=== PATIENT | male | born 1955 | race Caucasian/White ===

== ENCOUNTER 2019-09-14 14:40 | Outpatient (CLI) | payer OTHER, SELFPAY ==
[2019-09-14 14:53] LABS: Basophils Absolute Auto 0.1 K/mm3 (0.0-0.1); Basophils Percent Auto 0.6 % (0.2-1.2); Eosinophils Absolute Auto 0.2 K/mm3 (0-0.3); Eosinophils Percent Auto 2.5 % (0-4.4); Hemoglobin 8.7 g/dL (14.0-18.0); Immature Granulocyte Absolute 0.04 K/mm3 (0.00-0.031); Immature Granulocyte Percent A 0.5 % (0-0.5); Lymphocytes Absolute Auto 1.74 K/mm3 (0.9-3.2); Lymphocytes Percent Auto 21.1 % (18.3-44.2); Mean Corpuscular HGB Conc 31.1 g/dl (32-36); Mean Corpuscular Hemoglobin 25.3 pg (26-34); Mean Corpuscular Volume 81.4 fl (80-100); Mean Platelet Volume 8.6 fl (7.4-10.4); Monocytes Absolute Auto 1.1 K/mm3 (0.1-0.6); Monocytes Percent Auto 13.2 % (2.6-8.5); Neutrophils Absolute Auto 5.1 K/mm3 (1.3-6.7); Neutrophils Percent Auto 62.1 % (45.5-73.1); Platelet Count Result 497 k/mm3 (150-375); Red Blood Count 3.44 M/mm3 (4.6-6.20); Red Cell Distribution Width 21.7 % (11.5-14.5); White Blood Count 8.3 K/mm3 (4.5-10.0)
== END 2019-09-14 14:41 | disposition home or self-care (01) ==
LOC: ANHLAB 14:43
PROVIDERS: Nurse Practitioner; PCP Internal Medicine; Visit Provider Internal Medicine Hematology & Oncology
DX: R00.0 Tachycardia, unspecified (principal); D61.818 Other pancytopenia
CPT/HCPCS: 36415; 84443; 85025

== ENCOUNTER 2019-09-14 15:12 | Outpatient (CLI) | payer OTHER, SELFPAY ==
--- NOTE | ~2019-09-14 | XR_ITS ---
EXAMINATION: XR chest 2V DATE: 09/14/2019 15:28 INDICATION: Pneumonia, unspecified organism. Cough. TECHNIQUE: Frontal and lateral views of the chest were obtained. COMPARISON: Chest single view 09/03/2019, chest CT 05/17/2019 FINDINGS: There are mild airspace opacities in right perihilar region and right lower lung zone. Ther e are small nodules in left midlung zone. There is volume loss of right hemithorax with surgical clip s at the right hilum, which may be from right upper lobectomy. No pleural effusion or pneumothorax. T he heart size is normal. There is a right internal jugular port with tip in superior vena cava. IMPRESSION: 1. Mild airspace opacities in right perihilar region and right lower lung zone, consistent with atele ctasis versus pneumonia versus treatment change. 2. Small nodules in left midlung zone, which may be infection or less likely metastatic disease. Reviewed, dictated and finalized at location A. GAUGER AND LUBRICATOR TENDER IMPRESSION: 1. Mild airspace opacities in right perihilar region and right lower lung zone, consistent with atelectasis versus pneumonia versus treatment change. 2. Small nodules in left midlung zone, which may be infection or less likely me tastatic disease.
== END 2019-09-14 15:13 | disposition home or self-care (01) ==
LOC: ANHIMG 15:15
PROVIDERS: PCP Internal Medicine; Visit Provider Nurse Practitioner
DX: J18.9 Pneumonia, unspecified organism (principal); R91.8 Other nonspecific abnormal finding of lung field
CPT/HCPCS: 71046

== ENCOUNTER 2019-09-28 11:49 | Outpatient (CLI) | payer OTHER, SELFPAY ==
--- NOTE | ~2019-09-28 | XR_ITS ---
EXAMINATION: XR chest 2V EXAM DATE: 09/28/2019 12:23 INDICATION: Pneumonia. Lung cancer. TECHNIQUE: Frontal and lateral projections of the chest obtained and reviewed. Comparison is made to prior examination from 09/14/2019. FINDINGS: There is right-sided portacatheter. There is approximately 5 mm left midlung zone nodular density. Some scattered regions of right lung scarring. These findings appear not significant changed compared to prior study. There is no pneumothorax suspected. There are no pleural effusions. Cardiom ediastinal silhouette is normal. There are mild bony degenerative changes. IMPRESSION: 1. No acute cardiopulmonary findings. 2. Left midlung zone indeterminate nodular density. Reviewed, dictated and finalized at location B. CIDE SQUAD CAPTAIN
== END 2019-09-28 11:50 | disposition home or self-care (01) ==
LOC: ANHIMG 11:51
PROVIDERS: PCP Internal Medicine; Visit Provider Internal Medicine
DX: J18.9 Pneumonia, unspecified organism (principal)
CPT/HCPCS: 71046

== ENCOUNTER 2019-10-22 07:10 | Outpatient (CLI) | payer OTHER, SELFPAY ==
--- NOTE | ~2019-10-22 | US_ITS ---
EXAMINATION:US venous doppler LE LT INDICATION:Follow-up deep venous thrombosis TECHNIQUE: Multiple grayscale, color flow and Doppler images of the left lower extremity deep venous systems were obtained and reviewed. COMPARISON:Ultrasound dated 05/19/2019 FINDINGS: The common femoral, superficial femoral and popliteal veins demonstrate normal respiratory variation, augmentation and compressibility. Color flow is also seen within the posterior tibial, pe roneal, greater saphenous and profunda veins. Interval resolution of deep venous thrombosis. IMPRESSION: 1: No lower extremity deep venous thrombosis. Reviewed, dictated and finalized at location B. INSERTER
--- NOTE | ~2019-10-22 | CT_ITS ---
EXAMINATION: CT chest w con DATE: 10/22/2019 08:08 INDICATION: History of lung cancer. TECHNIQUE: Computed tomography (CT) of the chest was performed with 75 cc Omnipaque 350 intravenous c ontrast. The dose-length product was 474.73 mGy-cm. Automated exposure control and iterative reconstr uction technique were employed. COMPARISON: CT dated 05/17/2019 FINDINGS: Stable right hilar lymphadenopathy measuring 1.5 x 1.1 cm. No mediastinal lymphadenopathy. No axillary lymphadenopathy. Heart size normal. No significant pleural or pericardial effusion. Previ ously identified right suprahilar mass not definitely visualized on the current study. There is ather osclerosis of the aorta and coronary arteries. Interval resolution of right-sided pulmonary embolism. There are surgical changes of right upper lobectomy. There is a 5 mm right lower lobe nodules withou t significant change, coronal image 82. There is a 5 mm left lower lobe nodule, image 46 which is not significantly changed. There is a 5 mm left lower lobe nodule, image 84, unchanged. There is a port catheter, tip in the SVC. Moderate lower thoracic spondylosis with mild wedge deformities of multiple lower thoracic vertebra, likely chronic. No osteolytic or osteoblastic lesions are identified. There is a new 6 mm right lower lobe nodule, image 74. There is a new 5 mm nodule right lower lobe, image 61. There is moderate emphysema. IMPRESSION: 1. Bilateral pulmonary nodules measuring 6 mm or less without significant change, likely chronic gran ulomatous disease. Metastases are less favored. 2: Status post right upper lobectomy. Stable right hilar lymphadenopathy, possibly treated metastase s. Reviewed, dictated and finalized at location A. TY RECORDS MANAGEMENT OFFICER IMPRESSION: 1. Bilateral pulmonary nodules measuring 6 mm or less without significant phillips e, likely chronic granulomatous disease. Metastases are less favored. 2: Status post right upper lobectomy. Stable right hilar lymphadenopathy, poss ibly treated metastases.
[2019-10-22 08:04] LABS: Estimated Glomerular Filt Rate > 60
== END 2019-10-22 07:11 | disposition home or self-care (01) ==
LOC: ANHIMG 07:13
PROVIDERS: PCP Internal Medicine; Visit Provider Internal Medicine Hematology & Oncology
DX: C34.90 Malignant neoplasm of unspecified part of unspecified bronchus or lung (principal); I82.4Y2 Acute embolism and thrombosis of unspecified deep veins of left proximal lower extremity; R91.8 Other nonspecific abnormal finding of lung field
CPT/HCPCS: 36415; 71260; 93971; Q9967

== ENCOUNTER 2020-01-28 06:36 | Outpatient (CLI) | payer OTHER, SELFPAY ==
--- NOTE | ~2020-01-28 | CT_ITS ---
EXAMINATION:CT chest w con DATE: 01/28/2020 07:08 INDICATION: Malignant neoplasm of lung. TECHNIQUE: Computed tomography (CT) of the chest was performed with 75 mL Omnipaque 350 intravenous c ontrast. Automated exposure control and iterative reconstruction technique were employed. The dose-le ngth product (DLP) was 376.19 mGy-cm. COMPARISON: Chest CT 10/22/2019, 11/21/2016, 05/17/2019 FINDINGS: There are changes of right upper lobectomy. There is mild emphysema. There is a mild burden of chronic peripheral reticular opacities in the lungs. There is an 8 mm nodule in right lower lobe, stable from 11/21/2016, consistent with granulomatous disease. There are approximately 7 scattered pul monary nodules measuring up to 5 mm, stable from 11/21/2016, consistent with granulomatous disease. No pleural effusion. The heart size is normal. There are coronary artery calcifications. There are calci fications of the aortic valve. No pericardial effusion. There is a small sliding hiatal hernia. There is a 10 x 16 mm right hilar lymph node without change from 10/22/2019. There is a right internal jugul ar port with tip at superior cavoatrial junction. There is mild chronic anterior wedging of multiple thoracic vertebral bodies. There is moderate thoracic spondylosis. IMPRESSION: 1. Borderline enlarged right hilar lymph node, stable from 10/22/2019, which is indeterminate for metas tatic disease. Reviewed, dictated and finalized at location A. IMPRESSION: 1. Borderline enlarged right hilar lymph node, stable from 10/22/2019, which is i ndeterminate for metastatic disease.
[2020-01-28 07:03] LABS: Estimated Glomerular Filt Rate > 60
== END 2020-01-28 06:37 | disposition home or self-care (01) ==
PROVIDERS: PCP Internal Medicine; Visit Provider Internal Medicine Hematology & Oncology
DX: C34.90 Malignant neoplasm of unspecified part of unspecified bronchus or lung (principal); R59.0 Localized enlarged lymph nodes
CPT/HCPCS: 36415; 71260; Q9967

== ENCOUNTER 2020-04-25 09:26 | Outpatient (CLI) | payer OTHER, SELFPAY ==
--- NOTE | ~2020-04-25 | CT_ITS ---
EXAMINATION: CT chest w con DATE: 04/25/2020 09:53 INDICATION: Malignant neoplasm of the lung TECHNIQUE: Transaxial computed tomographic images of the chest were obtained after the administration of 75 cc of Omnipaque 350 intravenous contrast. The dose-length product (DLP) was 385.09 mGy-cm. Ite rative reconstruction was used. COMPARISON: 01/28/2020 FINDINGS: There are changes of right upper lobectomy. There is mild emphysema. There are multiple sta ble pulmonary nodules, the largest of which measures 8 mm in the right lower lobe, consistent with ol d granulomatous disease. No new pulmonary nodules are identified. There is no pleural effusion or pne umothorax. A right internal jugular Port-A-Cath ends with its tip at the superior cavoatrial junction . The heart size is normal. The previously described enlarged right hilar lymph node is slightly decr eased in size measuring 1.5 x 0.8 cm. Calcified atherosclerosis is noted. There is moderate thoracic spondylosis. Again noted is mild chronic anterior wedging of multiple thoracic vertebral bodies. IMPRESSION: 1. Decrease in size of the previously identified enlarged right hilar lymph node, likely reactive. Reviewed, dictated and finalized at location B. IMPRESSION: 1. Decrease in size of the previously identified enlarged right hilar lymph nod e, likely reactive.
[2020-04-25 09:46] LABS: Estimated Glomerular Filt Rate > 60
== END 2020-04-25 09:27 | disposition home or self-care (01) ==
LOC: ANHIMG 09:28
PROVIDERS: PCP Internal Medicine; Visit Provider Internal Medicine Hematology & Oncology
DX: C34.90 Malignant neoplasm of unspecified part of unspecified bronchus or lung (principal); R59.0 Localized enlarged lymph nodes
CPT/HCPCS: 71260; Q9967

== ENCOUNTER 2020-05-04 14:14 | Outpatient (CLI) | payer OTHER, SELFPAY ==
[2020-05-04 14:39] LABS: Basophils Absolute Auto 0.1 K/mm3 (0.0-0.1); Basophils Percent Auto 0.8 % (0.2-1.2); Eosinophils Absolute Auto 0.2 K/mm3 (0-0.3); Eosinophils Percent Auto 3.1 % (0-4.4); Hematocrit 40.5 % (42.0-52.0); Hemoglobin 13.6 g/dL (14.0-18.0); Lymphocytes Absolute Auto 2.47 K/mm3 (0.9-3.2); Lymphocytes Percent Auto 33.5 % (18.3-44.2); Mean Corpuscular HGB Conc 33.6 g/dl (32-36); Mean Corpuscular Hemoglobin 30.1 pg (26-34); Mean Corpuscular Volume 89.6 fl (80-100); Mean Platelet Volume 8.7 fl (7.4-10.4); Monocytes Absolute Auto 0.6 K/mm3 (0.1-0.6); Neutrophils Percent Auto 54.6 % (45.5-73.1); Platelet Count Result 207 k/mm3 (150-375); Red Blood Count 4.52 M/mm3 (4.6-6.20); Red Cell Distribution Width 13.9 % (11.5-14.5); White Blood Count 7.4 K/mm3 (4.5-10.0)
[2020-05-04 14:43] LABS: Blood Urea Nitrogen 13 mg/dL (8-26); Carbon Dioxide 30 mmol/L (22-30); Chloride 103 mmol/L (98-109); Estimated Glomerular Filt Rate > 60; Glucose 94 mg/dL (70-105); Potassium 4.5 mmol/L (3.5-4.9); Sodium 143 mmol/L (138-146)
[2020-05-04 17:05] LABS: Alanine Aminotransferase 26 U/L (4-50); Albumin Level 4.5 g/dL (3.5-5.1); Alkaline Phosphatase 82 U/L (38-126); Anion Gap 8 mmol/L (8-16); Aspartate Amino Transferase 31 U/L (17-59); Bilirubin,Total 0.4 mg/dL (0.2-1.3); Blood Urea Nitrogen 14 mg/dL (9-20); Calcium 9.9 mg/dL (8.4-10.2); Carbon Dioxide 31 mmol/L (22-30); Chloride 103 mmol/L (98-107); Estimated Glomerular Filt Rate > 60; Glucose 93 mg/dL (75-110); Potassium 4.6 mmol/L (3.4-5.0); Sodium 142 mmol/L (137-145)
[2020-05-04 17:43] LABS: Cholesterol 147 mg/dL (0-200); HDL Direct 36 mg/dL; Triglycerides 240 mg/dL (<150)
[2020-05-04 17:56] LABS: LDL Cholesterol Direct 80 mg/dL
[2020-05-04 18:13] LABS: Prostate Specific Antigen 0.7 ng/mL (< OR = 4.0)
== END 2020-05-04 14:15 | disposition home or self-care (01) ==
LOC: ANHLAB 14:15
PROVIDERS: PCP Internal Medicine; Visit Provider Internal Medicine Hematology & Oncology
DX: Z12.5 Encounter for screening for malignant neoplasm of prostate (principal); E78.5 Hyperlipidemia, unspecified
CPT/HCPCS: 36415; 80048; 80053; 80061; 84153; 85025; G0103

== ENCOUNTER 2020-08-02 07:02 | Outpatient (CLI) | payer OTHER, SELFPAY ==
--- NOTE | ~2020-08-02 | CT_ITS ---
EXAMINATION: CT chest w con DATE: 08/02/2020 07:35 INDICATION: Restaging malignant neoplasm of lung; history of right upper lobectomy and emphysema. TECHNIQUE: Computed tomography (CT) of the chest was performed with 75 cc Omnipaque 350 intravenous c ontrast. Automated exposure control and iterative reconstruction technique were employed. Exam dose: 340.73 mGy-cm total exam DLP. COMPARISON: 04/25/2020 CT chest FINDINGS: Right Port-A-Cath catheter in superior vena cava. Status post right thoracotomy/right upper lobectomy. No hilar or mediastinal mass lesion or lymphadenopathy is detected. Status post right upper lobectomy for history of lung cancer. Normal heart size. Coronary artery calcification. Aortic and great vessel calcifications. No thoracic aortic aneurysm or dissection. No pericardial or pleural effusion. There are scattered bilateral pulmonary nodules including the following: There is an approximately 2.7 mm nodule in the right upper lung field, previously measuring approxima tely 1.5 mm. This is of concern for possible enlarging mass/possible early malignancy. This is too sm all to detect by PET/CT imaging or to biopsy at this time. Follow-up CT imaging in 4-6 months is mariangel mmended. Stable 5 mm nodule in the posterior aspect of the right mid lung (series 4 image 49) Stable approximately 4 mm nodular density in the right lower lobe (image 62). Stable 8 mm opacity in the right lower lobe (image 73). Stable 5 mm right lower lobe opacity (image 77). Occasional lingular and left lower lobe calcified pulmonary granulomas. Mild emphysematous changes are noted. No pulmonary infiltrate or consolidation. No pneumothorax. Normal morphology of the adrenal glands. Approximately 1.6 cm upper pole left renal cyst. There is diffuse idiopathic skeletal hyperostosis of the thoracic spine. IMPRESSION: 2.7 mm right upper lobe nodule, increased in size from 1.5 mm on 04/25/2020, of concern fo r possible small malignancy. Follow-up CT imaging in 4-6 months with particular attention to this are a is recommended. Dr. Osborn telephoned this finding and the recommendation for CT follow-up in 4-[address] Monsalve' s nurse Vera on 08/02/2020 at 0934 hours. Reviewed, dictated and finalized at Location A. Reviewed, dictated and finalized at location B. LADLE TENDER IMPRESSION: 2.7 mm right upper lobe nodule, increased in size from 1.5 mm on , of concern for possible small malignancy. Follow-up CT imaging in 4-6 months with particular attention to this area is recommended. Dr. Osborn telephoned this finding and the recommendation for CT follow-up in 4-[address] Monsalve's nurse Vera on 08/02/2020 at 0934 hours.
[2020-08-02 07:30] LABS: Estimated Glomerular Filt Rate > 60
== END 2020-08-02 07:03 | disposition home or self-care (01) ==
PROVIDERS: PCP Internal Medicine; Visit Provider Internal Medicine Hematology & Oncology
DX: C34.90 Malignant neoplasm of unspecified part of unspecified bronchus or lung (principal); R91.1 Solitary pulmonary nodule
CPT/HCPCS: 71260; Q9967

== ENCOUNTER 2020-10-30 06:39 | Outpatient (CLI) | payer OTHER, SELFPAY ==
--- NOTE | ~2020-10-30 | CT_ITS ---
EXAMINATION:CT diagnostic chest w con DATE: 10/30/2020 07:09 INDICATION: Malignant neoplasm of lung. TECHNIQUE: Computed tomography (CT) of the chest was performed with 75 mL Omnipaque 350 intravenous c ontrast. Automated exposure control and iterative reconstruction technique were employed. The dose-le ngth product (DLP) was 446.05 mGy-cm. COMPARISON: Chest CT 08/02/2020, 11/25/18, 10/22/2019 FINDINGS: There is mild emphysema. There are changes of right upper lobectomy. There is chronic perip heral septal thickening in the lungs bilaterally. There are greater than 10 scattered nodules in the lungs, most of which are chronic. There is a 6 mm nodule in right upper lobe, increased from 3 mm. Th ere is an 8 mm nodule in left upper lobe, increased from 5 mm. No pleural effusion. There is a right internal jugular port with tip at superior cavoatrial junction. The heart size is normal. There are c oronary artery calcifications. No pericardial effusion. There is a 10 x 10 mm right hilar lymph node, stable from 10/22/19, likely benign. There is a small sliding hiatal hernia. There is a 2.1 cm cyst in left kidney. There is mild chronic anterior wedging of multiple thoracic vertebral bodies. There is moderate thoracic spondylosis. IMPRESSION: 1. 8 mm and 6 mm pulmonary nodules with interval enlargement, likely metastatic disease. 2. Mild emphysema. Reviewed, dictated and finalized at location A.
[2020-10-30 07:04] LABS: Estimated Glomerular Filt Rate > 60
== END 2020-10-30 06:40 | disposition home or self-care (01) ==
LOC: ANHIMG 06:41
PROVIDERS: PCP Internal Medicine; Visit Provider Internal Medicine Hematology & Oncology
DX: C34.90 Malignant neoplasm of unspecified part of unspecified bronchus or lung (principal); J43.9 Emphysema, unspecified
CPT/HCPCS: 71260; Q9967

== ENCOUNTER 2020-10-31 09:09 | Outpatient (CLI) | payer OTHER, SELFPAY ==
[2020-10-31 13:14] LABS: Cholesterol 139 mg/dL (0-200); HDL Direct 42 mg/dL; Triglycerides 135 mg/dL (<150)
[2020-10-31 13:26] LABS: LDL Cholesterol Direct 71 mg/dL
[2020-10-31 13:45] LABS: Prostate Specific Antigen 0.8 ng/mL (< OR = 4.0)
== END 2020-10-31 09:10 | disposition home or self-care (01) ==
LOC: ANHLAB 09:10
PROVIDERS: PCP Internal Medicine; Visit Provider Internal Medicine
DX: Z12.5 Encounter for screening for malignant neoplasm of prostate (principal); I10 Essential (primary) hypertension; Z51.81 Encounter for therapeutic drug level monitoring; E78.5 Hyperlipidemia, unspecified
CPT/HCPCS: 36415; 80061; 84153; G0103

== ENCOUNTER 2020-11-16 07:34 | Outpatient (CLI) | payer OTHER, SELFPAY ==
--- NOTE | ~2020-11-16 | MR_ITS ---
EXAMINATION: MR brain/brain stem wo/w con DATE: 11/16/2020 08:38 INDICATION: Headache . Malignant neoplasm of the right lung. TECHNIQUE: Magnetic resonance imaging (MRI) of the brain and brainstem was performed without and with 18 mL Multihance intravenous contrast. Sequences included sagittal and axial T1-weighted SE, axial d iffusion-weighted FS SE, axial T2*-weighted GRE, axial T2-weighted FLAIR, and axial T2-weighted FSE. Postcontrast axial and coronal T1-weighted SE was obtained. Apparent diffusion coefficient (ADC) maps were created. COMPARISON: None. FINDINGS: There are no areas of restricted diffusion to suggest acute infarction. No intracranial hemorrhage or abnormal intracranial mass lesion. Minimal scattered foci of nonspecific increased T2-weighted signa l intensity in the cerebral white matter, predominantly involving the deep and periventricular white matter which is within normal limits for age. There are no intraparenchymal signal abnormalities seen on the other pulse sequences. The ventricles are symmetric and normal in size. There are no abnormal extra-axial fluid collections. Flow voids are seen in the cerebral arteries on the T2-weighted seque nces consistent with their expected patency. Mild mucosal thickening in the bilateral ethmoid and max illary sinuses. Visualized orbits and soft tissues are unremarkable. There are no areas of abnormal e nhancement on the post contrast images. IMPRESSION: 1. Normal aging brain. No acute intracranial process or abnormally enhancing brain lesions. Reviewed, dictated and finalized at location A. IMPRESSION: 1. Normal aging brain. No acute intracranial process or abnormally enhancing br ain lesions.
--- NOTE | ~2020-11-16 | PE_ITS ---
EXAMINATION: PET skull to mid thigh DATE: 11/16/2020 11:49 INDICATION: Malignant neoplasm of the left upper lobe. TECHNIQUE: Blood glucose level was 103 mg/dL. 9.446 mCi of 18-fluorodeoxyglucose (18-FDG) was adminis tered i.v. Low dose computed tomography (CT) images were acquired from the base of the brain to the p roximal thighs for attenuation correction and anatomic localization. Positron emission tomography (PE T) images were acquired in the same distribution beginning 62 minutes after injection. Images includi ng fused PET/CT images were reconstructed in axial, coronal, and sagittal planes. Automated exposure control technique was employed. The dose-length product was 1084.17mGy-cm. COMPARISON: Chest CT dated 10/30/2020 and PET/CT dated 12/03/2018 FINDINGS: Head/neck: There is symmetric increased activity in the oral cavity, palatine tonsils, parotid glands, submandi bular glands, laryngeal muscles and ocular muscles without CT correlate, likely physiologic. No patho logically enlarged cervical lymphadenopathy or suspicious foci of increased FDG uptake in the visuali zed head or neck. Atherosclerotic calcifications at the bilateral carotid bulbs. Chest: Right internal jugular central venous port catheter with distal tip at the superior cavoatrial juncti on. Mild emphysema. Chronic postoperative changes of prior right upper lobectomy with compensatory hy perexpansion of the right middle and lower lobes. Mild respiratory motion which mildly limits evaluat ion of fine pulmonary parenchymal detail. There are a few bilateral pulmonary nodules, the largest me asuring 8 mm at the lingula and 6 mm nodules in the cephalad aspect of the right middle lobe and in t he superior segment of the right lower lobe. No evident FDG uptake associated with any of the pulmona ry nodules. No pneumonia,, pulmonary edema or pleural effusion. Heart size is normal. Atherosclerotic coronary artery calcifications. Aortic valve and mitral annular calcification. No pericardial effusi on. No pathologically enlarged and FDG avid thoracic lymphadenopathy. Abdomen/pelvis/proximal thighs: Physiologic renal accumulation and excretion of FDG activity in the kidneys, bladder and along portio ns of ureters. Normal degree and heterogenous pattern of increased uptake throughout the liver withou t radiologic correlate or dominant FDG avid lesion. The gallbladder, pancreas, spleen and bilateral a drenal glands are normal. Mild uptake scattered throughout the bowels without radiologic correlate, a lso likely physiologic. There is moderate colonic diverticulosis with a sigmoid predominance. There i s no adjacent inflammatory change to suggest diverticulitis. Normal appendix. Bilateral small fat-co ntaining inguinal hernias. There is calcified atherosclerosis of the aorta and many of the other ortiz bassem. This may be hemodynamically significant in the right common iliac artery. No other abnormal foc i of increased FDG uptake or pathologically enlarged lymphadenopathy in the abdomen, pelvis or proxim al thighs. Musculoskeletal: Minimal uptake without radiologic correlate at the site of a posterior right fifth rib thoracotomy. M ild thoracolumbar spondylosis. Chronic mild anterior wedging of a few lower thoracic vertebral bodies . No suspicious lytic, blastic or FDG avid bone lesions. IMPRESSION: 1. No evident FDG uptake associated with the previously noted 8 mm lingular and 6 mm right middle and lower lobe nodules. This is reassuring given the prominent increased FDG uptake with maximal SUV of 14.6 associated with the primary right lung cancer seen on study dated 12/03/2018. Would recommend con tinued CT follow-up in 6 months as low-grade malignancy cannot be absolutely excluded either from a s eparate low-grade primary lung cancer or metastatic disease related to either low-grade unknown prima ry. 2. Mild emphysema with changes of prior posterior
[2020-11-16 09:40] LABS: Glucose Point of Care 103 (65-105)
== END 2020-11-16 07:35 | disposition home or self-care (01) ==
PROVIDERS: PCP Internal Medicine; Visit Provider Radiology Radiation Oncology
DX: C34.12 Malignant neoplasm of upper lobe, left bronchus or lung (principal); C34.11 Malignant neoplasm of upper lobe, right bronchus or lung; R51.9 Headache, unspecified; J43.9 Emphysema, unspecified; K57.90 Diverticulosis of intestine, part unspecified, without perforation or abscess without bleeding
CPT/HCPCS: 70553; 78815; A9552; A9577

== ENCOUNTER 2021-02-26 09:16 | Outpatient (CLI) | payer OTHER, SELFPAY ==
--- NOTE | ~2021-02-26 | CT_ITS ---
EXAMINATION: CT diagnostic chest wo con EXAM DATE: 02/26/2021 09:36 INDICATION: C34.12 - Malignant neoplasm of upper lobe, left bronchus. TECHNIQUE: Spiral CT of the chest without contrast. Axial, coronal and sagittal images of the chest were reviewed. Coronal maximum intensity pixel images of chest reviewed. The dose-length product ( DLP) for this examination was 390.76 mGy-cm. The exposure was tailored according to patient size (au to mA exposure control), and iterative reconstruction (ASIR) was used as additional dose reduction te chnique. Comparison is made to prior examination from 10/30/2020. FINDINGS: Surgical changes from right upper lobectomy. At the right lung apex (likely right middle l obe) nodule measures 8 mm (previously 4 mm). Lingular nodule is by lobulated, measuring 8 x 11 mm (pr eviously 5 x 7 mm). These were not FDG positive on PET CT 11/16/2020. Right lower lobe 5 mm nodule and several other basilar lung nodules unchanged. There is mild to moderate emphysema. No aortic valve stone rdware. There are no pleural or pericardial effusions. Tracheobronchial tree is patent. There is no mediastinal, hilar or axillary lymphadenopathy. There is no pneumothorax. Heart normal in siz e. There are likely coronary arterial stent or stents. Correlate with prior cardiac history. Upper abdomen is unremarkable. There is thoracic spondylosis without osteoblastic or osteolytic lesions identified. IMPRESSION: 1. Enlarging right apical, lingular pulmonary nodules, could be postinfectious given no activity on PET/CT. Can't exclude metastatic disease. Consider 3-6 month follow-up chest CT. 2. Other scattered basilar nodules are stable. 3. Mild to moderate emphysema. Reviewed, dictated and finalized at location A. IMPRESSION: 1. Enlarging right apical, lingular pulmonary nodules, could be postinfectious given no activity on PET/CT. Can't exclude metastatic disease. Consider 3-6 mo nth follow-up chest CT. 2. Other scattered basilar nodules are stable. 3. Mild to moderate emphysema.
== END 2021-02-26 09:17 | disposition home or self-care (01) ==
PROVIDERS: PCP Internal Medicine; Visit Provider Radiology Radiation Oncology
DX: C34.12 Malignant neoplasm of upper lobe, left bronchus or lung (principal); R91.8 Other nonspecific abnormal finding of lung field; J43.9 Emphysema, unspecified
CPT/HCPCS: 71250

== ENCOUNTER 2021-04-24 10:59 | Outpatient (CLI) | payer OTHER, SELFPAY ==
--- NOTE | 2021-04-24 11:07 | ECHO_ITS ---
Patient Info Name: Leonardo Ash Age: 65 years : 1955 Gender: Male Ht: 70 in Wt: 205 lbs BSA: 2.17 m2 HR: 91 bpm BP: 137 / 84 mmHg Exam Date: 04/24/2021 11:29 AM Exam Location: [facility] Patient Status: Outpatient Admit Date: 04/24/2021 Staff Ordering Physician: Corwin Pizarro APRN Principal Account Clerk: SIRI Attending Provider: Corwin Pizarro APRN Referring Physician: Juarez HUMPHREY; Exam Type: CA echo doppler color flow Study Info Indications R01.1 - Cardiac murmur, unspecified Complete two-dimensional, color flow and Doppler transthoracic echocardiogram is performed. Summary 1. Complete two-dimensional, color flow and Doppler transthoracic echocardiogram is performed. 2. Left ventricular chamber dimension is normal. 3. Left ventricular systolic function is normal, estimated at 65-70%. 4. The left ventricular diastolic function is grade I diastolic dysfunction. 5. E/e' 10 is mildly elevated. 6. There is moderate aortic valve stenosis based on a peak velocity of 351 cm/s, mean gradient of 25 mmHg, and aortic valve area of 1.2 cm2. 7. There is severe aortic valve sclerosis. 8. The mitral valve has moderately calcified leaflets and moderately calcified annulus. 9. There is trace tricuspid valve regurgitation. 10. No pulmonary hypertension, estimated pulmonary arterial systolic pressure is 37 mmHg. Left Ventricle E/e' 10 is mildly elevated. Left ventricular chamber dimension is normal. Left ventricular systolic function is normal, estimated at 65-70%. The left ventricular diastolic function is grade I diastolic dysfunction. Right Ventricle Right ventricular chamber dimension is normal. Right ventricular systolic function is normal. Left Atria Left atrial chamber dimension is normal. Right Atria Right atrial chamber dimension is normal. Aortic Valve The aortic valve is not well visualized. Cannot determine number of aortic valve leaflets. There is moderate aortic valve stenosis based on a peak velocity of 351 cm/s, mean gradient of 25 mmHg, and aortic valve area of 1.2 cm2. There is severe aortic valve sclerosis. There is no aortic valve regurgitation. Pulmonic Valve There is no pulmonic regurgitation. Mitral Valve The mitral valve has moderately calcified leaflets and moderately calcified annulus. There is no mitral valve stenosis. There is no mitral valve regurgitation. Tricuspid Valve There is trace tricuspid valve regurgitation. No pulmonary hypertension, estimated pulmonary arterial systolic pressure is 37 mmHg. Pericardium/Pleural There is no pericardial effusion. Inferior Vena Cava Normal inferior vena cava with >50% collapse upon inspiration consistent with normal right atrial pressure, 5 mmHg. Aorta The aortic root size at the sinus of Valsalva is normal. Left Ventricular Outflow Tract Name Value Normal LVOT 2D LVOT Diameter 2.0 cm LVOT Doppler LVOT Peak Gradient 4 mmHg LVOT Mean Gradient 3 mmHg LVOT VTI 26 cm LVOT VTI/AV VTI Ratio
== END 2021-04-24 11:00 | disposition home or self-care (01) ==
LOC: ANHCARD 11:00
PROVIDERS: PCP Internal Medicine; Visit Provider Nurse Practitioner
DX: R01.1 Cardiac murmur, unspecified (principal); I36.1 Nonrheumatic tricuspid (valve) insufficiency; I35.0 Nonrheumatic aortic (valve) stenosis
CPT/HCPCS: 93306

== ENCOUNTER 2021-06-01 08:27 | Outpatient (CLI) | payer OTHER, SELFPAY ==
--- NOTE | 2021-06-01 | EST_ITS ---
Patient Info Name: Leonardo Ash Age: 65 years : 1955 Gender: Male Ht: 70 in Wt: 204 lbs BSA: 2.16 m2 HR: 66 bpm BP: 153 / 87 mmHg Heart Rhythm: Sinus Rhythm Exam Date: 06/01/2021 9:33 AM Exam Location: [facility] Stress Patient Status: Preadmit Admit Date: 06/04/2021 Staff Ordering Physician: Juan Jose Leon DO Attending Provider: Brooklyn Coello MD Exercise Technologist: Nola Méndez CT Exercise Physician: Juan Jose Leon DO Exam Type: CA stress myesha w NM Study Info Indications R07.9 - Chest pain, unspecified A regadenoson stress test was performed. Summary 1. 1. Negative lexiscan stress test for ischemic ST changes by ECG criteria. 2. 2. Baseline hypertension. 3. 3. Nuclear scan to follow and will be reported separately. Please correlate with it. 4. 4. Patient informed of the above results. Protocol: Lexiscan Stress ECG Details Stage: REST Duration (min): 0 min : 59 sec HR (bpm): 66 SBP (mmHg): 153 DBP (mmHg): 87 Stage: REST Duration (min): 5 min : 33 sec HR (bpm): 70 SBP (mmHg): 153 DBP (mmHg): 87 Stage: STAGE 1 Duration (min): 1 min : 0 sec HR (bpm): 73 SBP (mmHg): 144 DBP (mmHg): 88 Stage: RECOVERY Duration (min): 1 min : 0 sec HR (bpm): 90 SBP (mmHg): 144 DBP (mmHg): 88 Stage: RECOVERY Duration (min): 1 min : 58 sec HR (bpm): 91 SBP (mmHg): 130 DBP (mmHg): 77 Rest HR: 70 bpm Peak HR: 95 bpm Rest Sys BP: 153 mmHg Peak Sys BP: 144 mmHg Max Pred HR: 153 bpm % Max Pred HR: 62 % Target HR: 130 bpm Max RPP: 13,680 bpm*mmHg Termination Reason: Completed protocol Cardiac Symptoms: Shortness of breath Total Time: 1 min : 0 sec Rest Giordano BP: 87 mmHg Peak Giordano BP: 88 mmHg Total Dose: 0.4 mg Resting ECG Sinus rhythm. Stress ECG No ST changes. Arrhythmias None. Report Signatures
--- NOTE | ~2021-06-01 | NM_ITS ---
EXAMINATION: NM myesha stress w perfusion DATE: 06/01/2021 10:52 INDICATION: Chest pain TECHNIQUE: Rest images were obtained following intravenous administration of 9.0 mCi Tc99m tetrofosmi n (Myoview). The patient was infused intravenously with Lexiscan (Regadenoson). Then, 28.2 mCi Tc99m tetrofosmin (Myoview) was administered intravenously, and stress images were obtained in supine posit ion. The stress images were repeated in prone position. Data was reconstructed into short axis and ho rizontal and vertical long axis SPECT images. Gated SPECT images were also obtained. COMPARISON: None. FINDINGS: There is no definite reversible or fixed perfusion abnormality to suggest ischemia or infar ction. Likely diaphragmatic attenuation artifact along the inferior and inferolateral wall on the sup ine stress images which normalizes with prone imaging. There is normal left ventricular chamber size, wall motion and ejection fraction. Left ventricular ejection fraction measures 76%. IMPRESSION: 1. Normal myocardial perfusion at rest and during stress. 2. Left ventricular ejection fraction measuring %. Reviewed, dictated and finalized at location A.
== END 2021-06-01 08:28 | disposition home or self-care (01) ==
LOC: ANHCARD 08:30
PROVIDERS: PCP Internal Medicine; Visit Provider Internal Medicine Cardiovascular Disease
DX: R07.9 Chest pain, unspecified (principal)
CPT/HCPCS: 78452; 93017; A9502; J2785

== ENCOUNTER 2021-06-04 14:54 | Outpatient (CLI) | payer OTHER, SELFPAY ==
--- NOTE | ~2021-06-04 | CT_ITS ---
EXAMINATION:CT diagnostic chest w con DATE: 06/04/2021 15:29 INDICATION: Malignant neoplasm of upper lobe, left bronchus. TECHNIQUE: Computed tomography (CT) of the chest was performed with 75 mL Omnipaque 350 intravenous c ontrast. Automated exposure control and iterative reconstruction technique were employed. The dose-le ngth product (DLP) was 488.46 mGy-cm. COMPARISON: Chest CT 02/26/2021 FINDINGS: There is mild scarring at the lung apices. There is chronic peripheral septal thickening bi laterally. There are changes of right upper lobectomy. There are greater than 10 scattered nodules in the lungs. For example, a 13 mm nodule in lingula previously measured 11 mm. A 9 mm nodule in right middle lobe previously measured 8 mm. No pleural effusion. The heart size is normal. There are neely ry artery calcifications. There are calcifications of aortic valve. No pericardial effusion. There is a right internal jugular port with tip at superior cavoatrial junction. There is mild right hilar an d mediastinal lymphadenopathy with interval worsening. There is a small sliding hiatal hernia. There is mild chronic anterior wedging of multiple vertebral bodies. There is moderate thoracic spondylosis . IMPRESSION: 1. Worsened pulmonary nodules and mild mediastinal and right hilar lymphadenopathy, consistent with m etastatic disease. 2. Mild emphysema. Reviewed, dictated and finalized at location A. IMPRESSION: 1. Worsened pulmonary nodules and mild mediastinal and right hilar lymphadenopa thy, consistent with metastatic disease. 2. Mild emphysema.
[2021-06-04 15:27] LABS: Estimated Glomerular Filt Rate > 60
== END 2021-06-04 14:55 | disposition home or self-care (01) ==
LOC: ANHIMG 14:55
PROVIDERS: PCP Internal Medicine; Visit Provider Radiology Radiation Oncology
DX: R07.9 Chest pain, unspecified (principal); C34.12 Malignant neoplasm of upper lobe, left bronchus or lung; C34.11 Malignant neoplasm of upper lobe, right bronchus or lung; R91.8 Other nonspecific abnormal finding of lung field; R59.0 Localized enlarged lymph nodes; J43.9 Emphysema, unspecified
CPT/HCPCS: 71260; Q9967

== ENCOUNTER 2021-07-17 08:53 | Outpatient (CLI) | payer OTHER, SELFPAY ==
--- NOTE | ~2021-07-17 | PE_ITS ---
EXAMINATION: PET skull to mid thigh DATE: 07/17/2021 10:58 INDICATION: Malignant neoplasm of lung. TECHNIQUE: Blood glucose level was 91 mg/dL. 10.852 mCi of 18-fluorodeoxyglucose (18-FDG) was adminis tered i.v. Low dose computed tomography (CT) images were acquired from the base of the brain to the p roximal thighs for attenuation correction and anatomic localization. Automated exposure control was e mployed. Dose-length product (DLP) was 992 mGy-cm. Positron emission tomography (PET) images were acq uired in the same distribution. COMPARISON: PET CT 11/16/2020, chest CT 06/04/2021, 11/25/2018 FINDINGS: Head/neck: There is mucosal thickening in the paranasal sinuses. There is increased activity in the o ral cavity, oropharynx, and glottis without CT correlate, likely physiologic. There are no pathologic ally enlarged lymph nodes. Chest: There is a right internal jugular port with tip in right atrium. There are changes of right up per lobectomy. There is mild scarring at the lung apices. There is mild emphysema. There is an 11 mm nodule in right middle lobe with maximum SUV of 3.8. There is a 14 mm nodule in lingula with maximum SUV of 3.2. There is left hilar and mediastinal lymphadenopathy with increased activity. No pleural e ffusion. The heart size is normal. There are coronary artery calcifications. There are calcifications of aortic valve. No pericardial effusion. There is a small sliding hiatal hernia. Abdomen/pelvis/proximal thighs: The liver, gallbladder, spleen, pancreas, adrenal glands, and kidneys are normal. There are no dilated loops of bowel. There is diverticulosis of the colon without eviden ce of diverticulitis. There is prominent fat in the inguinal canals that may be hernias. There are no pathologically enlarged lymph nodes. There is no free intraperitoneal fluid. There is no osseous met astatic disease. IMPRESSION: 1. Pulmonary nodules and left hilar and mediastinal lymphadenopathy with increased activity with wors ening from 11/16/20, consistent with metastatic disease. Reviewed, dictated and finalized at location A. TECHNICIAN IMPRESSION: 1. Pulmonary nodules and left hilar and mediastinal lymphadenopathy with increa sed activity with worsening from 11/16/20, consistent with metastatic disease.
[2021-07-17 09:27] LABS: Glucose Point of Care 91 mg/dl (65-105)
== END 2021-07-17 08:54 | disposition home or self-care (01) ==
PROVIDERS: PCP Internal Medicine; Visit Provider Internal Medicine Hematology & Oncology
DX: C34.90 Malignant neoplasm of unspecified part of unspecified bronchus or lung (principal); R59.0 Localized enlarged lymph nodes; R91.8 Other nonspecific abnormal finding of lung field
CPT/HCPCS: 78815; A9552

== ENCOUNTER 2021-12-20 12:49 | Outpatient (CLI) | payer OTHER, SELFPAY ==
--- NOTE | 2021-12-25 16:13 | WPDHOLTEREM ---
Holter/Event Monitor Holter/Event Monitor Date of procedure: 12/20/21 Holter/Event Procedure: 48 Hr Holter Monitor Indications: Syncope Conclusion: 1. 48 hour holter monitor on 12/20/21. 2. Predominant rhythm is sinus rhythm. HR range 48-126 bpm; average HR 74 bpm. 3. There are 418 premature supraventricular complexes, 22 supraventricular couplets, 6 supraventricular bigeminy, 3 supraventricular trigeminy. There are 8 episodes of atrial tachycardia, fastest at 118 bpm and longest lasting 5 beats. 4. There are 347 premature ventricular complexes, 1 ventricular couplet. No ventricular tachycardia. 5. No sinoatrial or atrioventricular blocks. No significant pauses greater than 2 seconds. 6. No symptoms available for correlation.
== END 2021-12-20 12:50 | disposition home or self-care (01) ==
LOC: ANHCARD 12:52
PROVIDERS: PCP Internal Medicine; Visit Provider Internal Medicine
DX: R55 Syncope and collapse (principal)
CPT/HCPCS: 93225; 93226

== ENCOUNTER 2022-05-01 12:10 | Outpatient (CLI) | payer OTHER, SELFPAY ==
--- NOTE | 2022-05-01 12:52 | ECHO_ITS ---
Patient Info Name: Leonardo Ash Age: 66 years : 1955 Gender: Male Ht: 68 in Wt: 205 lbs BSA: 2.14 m2 HR: 77 bpm BP: 141 / 85 mmHg Heart Rhythm: Sinus Rhythm Technical Quality: Fair Exam Date: 05/01/2022 1:18 PM Exam Location: [facility] Patient Status: Outpatient Admit Date: 05/01/2022 Staff Ordering Physician: Juan Jose Leon DO Visual Lead: Lexus Cooper RDCS Attending Provider: Juan Jose Leon DO Referring Physician: Edward QUIJANO; Exam Type: CA echo doppler color flow Study Info Indications I35.0 - Nonrheumatic aortic (valve) stenosis Complete two-dimensional, color flow and Doppler transthoracic echocardiogram is performed. Summary 1. Complete two-dimensional, color flow and Doppler transthoracic echocardiogram is performed. 2. Left ventricular chamber dimension is normal. 3. Left ventricular systolic function is normal, estimated at 60-65%. 4. The left ventricular diastolic function is grade I diastolic dysfunction. 5. E/e' 11 is mildly elevated. 6. Global longitudinal strain is normal at -17.4%. 7. Left atrial chamber dimension is mildly enlarged. 8. The aortic valve is trileaflet. The aortic valve is not well seen. 9. There is severe aortic valve sclerosis. 10. There is severe aortic valve stenosis with a peak velocity of 315 cm/s, mean gradient of 28 mmHg, and aortic valve area of 0.9 cm2. 11. The mitral valve has moderate calcified leaflets and moderately calcified annulus. Left Ventricle E/e' 11 is mildly elevated. Global longitudinal strain is normal at -17.4%. Left ventricular chamber dimension is normal. Left ventricular systolic function is normal, estimated at 60-65%. The left ventricular diastolic function is grade I diastolic dysfunction. Right Ventricle Right ventricular systolic function is normal and with normal TAPSE 2.0 cm. Right ventricular chamber dimension is normal. Left Atria Left atrial chamber dimension is mildly enlarged. Right Atria Right atrial chamber dimension is normal. Aortic Valve The aortic valve is trileaflet. The aortic valve is not well seen. There is severe aortic valve sclerosis. There is severe aortic valve stenosis with a peak velocity of 315 cm/s, mean gradient of 28 mmHg, and aortic valve area of 0.9 cm2. There is no aortic valve regurgitation. Pulmonic Valve There is no pulmonic regurgitation. Mitral Valve The mitral valve has moderate calcified leaflets and moderately calcified annulus. There is no mitral valve stenosis. There is no mitral valve regurgitation. Tricuspid Valve There is no tricuspid valve regurgitation. Pericardium/Pleural There is no pericardial effusion. Inferior Vena Cava Normal inferior vena cava with >50% collapse upon inspiration consistent with normal right atrial pressure, 5 mmHg. Aorta The aortic root size at the sinus of Valsalva is normal. Left Ventricular Outflow Tract Name Value Normal LVOT 2D LVOT Diameter 2.0 cm LVOT Doppler LVOT Peak Gradient 3 mmHg LVOT Mean Gradient 2 mmHg LVOT VTI
== END 2022-05-01 12:11 | disposition home or self-care (01) ==
LOC: ANHCARD 12:11
PROVIDERS: PCP Internal Medicine; Visit Provider Internal Medicine Cardiovascular Disease
DX: I35.0 Nonrheumatic aortic (valve) stenosis (principal); I70.0 Atherosclerosis of aorta
CPT/HCPCS: 93306